=== PATIENT | female | born 1940 | race Caucasian/White ===

== ENCOUNTER 2018-05-19 08:47 | Inpatient (IN) ==
[2018-05-19] MEDS ORDERED: ENOXAPARIN 100 MG/ML SYRINGE SUBCUT STA (09:13)
[2018-05-19] MEDS: NITROGLYCERIN SL 0.4 MG TABLET SL PRN ×3 (09:13→13:25)
[2018-05-19 09:38] LABS: Basophils % 0.9 % (0.0-0.8); Eosinophils # 0.1 10*3/uL (0.0-0.87); Eosinophils % 1.7 % (0.00-10.9); Hematocrit 44.1 VOL% (35.7-47.0); Immature Granulocytes % 0.2 %; Immature Granulocytes Absolute 0.01 #; Lymphocytes # 1.2 10*3/uL (1.4-4.0); Lymphocytes % 25.3 % (21.3-54.2); Mean Corpuscular HGB Conc 31.7 GM/DL (32-36); Mean Corpuscular Hemoglobin 30 PG (27-34); Mean Corpuscular Volume 94.8 FL (87-102); Mean Platelet Volume 9.7 FL (9.6-12.0); Monocytes # 0.4 10*3/uL (0.11-0.8); Monocytes % 8.6 % (1.7-12.7); Neutrophils # 2.9 10*3/uL (1.4-7.4); Neutrophils % 63.3 % (38.7-73.9); Platelet Count 259 T/CUMM (130-400); Red Blood Count 4.65 MC/CUMM (3.8-5.5); Red Cell Distribution Width 13.3 % (9.3-17.3); White Blood Count 4.6 T/CUMM (4-12)
[2018-05-19] MEDS ORDERED: ONDANSETRON 4 MG/2 ML VIAL ONE (09:58)
[2018-05-19] MEDS ORDERED: MORPHINE 4 MG/1 ML VIAL ONE ×2 (09:59→19:33)
[2018-05-19 10:03] LABS: Albumin 3.8 G/DL (3.4-5.0); Bilirubin,Total 0.5 MG/DL (0.2-1.0); Calcium 9.2 MG/DL (8.5-10.1); Osmolality,Calculated 282.3 MOS/KG (273-304); Potassium 4.1 MMOL/L (3.5-5.1); Total Protein 6.9 G/DL (6.4-8.3)
[2018-05-19] MEDS ORDERED: ONDANSETRON 4 MG/2 ML VIAL IV STA (10:06)
[2018-05-19] MEDS ORDERED: MORPHINE 4 MG/1 ML VIAL IV STA (10:06)
[2018-05-19] MEDS ORDERED: DOCUSATE SODIUM 100 MG CAPSULE PO PRN (11:33)
[2018-05-19] MEDS ORDERED: ZALEPLON 5 MG CAPSULE PO PRN (11:33)
[2018-05-19] MEDS ORDERED: MAGNESIUM SULF RIDER 2 GM in PREMIX 1 EACH IV PRN (11:33)
[2018-05-19] MEDS ORDERED: guaiFENesin/DM ER 600-30 MG TABLET PO PRN (11:33)
[2018-05-19] MEDS ORDERED: ONDANSETRON 4 MG/2 ML VIAL IV PRN (11:33)
[2018-05-19] MEDS ORDERED: diphenhydrAMINE CAP 25 MG CAPSULE PO PRN (11:33)
[2018-05-19] MEDS ORDERED: POTASSIUM CHLORIDE 20 MEQ TABLET PO PRN (11:33)
[2018-05-19] MEDS ORDERED: MAGNESIUM SULF RIDER 4 GM in PREMIX 1 EACH IV PRN (11:33)
[2018-05-19] MEDS ORDERED: ACETAMINOPHEN 325 MG TABLET PO PRN (11:33)
[2018-05-19] MEDS ORDERED: BISACODYL 5 MG TABLET PO PRN (11:33)
[2018-05-19 13:48] LABS: Troponin I 4.09 NG/ML (0.00-0.045)
[2018-05-19] MEDS ORDERED: DIAZEPAM 5 MG TABLET PO ONE (14:01)
[2018-05-19] MEDS ORDERED: diphenhydrAMINE CAP 25 MG CAPSULE PO ONE (14:01)
[2018-05-19] MEDS ORDERED: LIDOCAINE 1% 20 ML VIAL ONE (14:54)
[2018-05-19] MEDS ORDERED: MIDAZOLAM 2 MG/2 ML VIAL ONE (15:03)
[2018-05-19] MEDS ORDERED: fentaNYL 100 MCG/2 ML VIAL ONE (15:04)
[2018-05-19 15:35] LABS: CKMB % 11.6 %
[2018-05-19 15:45] LABS: Troponin I 6.36 NG/ML (0.00-0.045)
[2018-05-19] MEDS ORDERED: TIROFIBAN 5,000 MCG/100 ML PREMIX IV ONE (18:06)
[2018-05-19] MEDS ORDERED: TIROFIBAN 5,000 MCG/100 ML PREMIX IV SCH (18:11)
[2018-05-19] MEDS ORDERED: HEPARIN 5,000 UNIT/1 ML VIAL ONE (18:33)
[2018-05-19] MEDS ORDERED: CLOPIDOGREL 300 MG TABLET ONE (18:34)
[2018-05-19] MEDS ORDERED: LORazepam 0.5 MG TABLET PO PRN (19:07)
[2018-05-19] MEDS: MORPHINE 4 MG/1 ML VIAL IV PRN (19:32)
[2018-05-19 20:21] LABS: CKMB % 11.5 %
[2018-05-19 20:24] LABS: Troponin I 13.8 NG/ML (0.00-0.045)
[2018-05-19] MEDS: SODIUM CHLORIDE 0.9% 1,000 ML IV SCH (21:07)
[2018-05-19] MEDS: PANTOPRAZOLE 40 MG TABLET PO SCH ×2 (21:07→21:11)
[2018-05-19] MEDS: CARBIDOPA/LEVODOPA 25-100 MG TABLET PO SCH (21:09)
[2018-05-19] MEDS: CALCIUM (CARBONATE) 500 MG TABLET PO SCH (21:10)
[2018-05-19] MEDS: PRAVASTATIN 40 MG TABLET PO SCH (21:10)
[2018-05-19] MEDS: POTASSIUM CHLORIDE 10 MEQ TABLET PO SCH (21:10)
[2018-05-19] MEDS: CLOPIDOGREL 75 MG TABLET PO SCH (21:10)
[2018-05-19] MEDS: CARVEDILOL 12.5 MG TABLET PO SCH (21:10)
[2018-05-19 22:47] LABS: Troponin I 13.8 NG/ML (0.00-0.045)
[2018-05-20] MEDS: SODIUM CHLORIDE 0.9% 1,000 ML IV SCH (01:30)
[2018-05-20] MEDS: MORPHINE 4 MG/1 ML VIAL IV PRN ×2 (04:32→12:07)
[2018-05-20 05:42] LABS: Basophils # 0.1 10*3/uL (0.0-0.2); Basophils % 0.7 % (0.0-0.8); Eosinophils # 0.1 10*3/uL (0.0-0.87); Eosinophils % 0.7 % (0.00-10.9); Hematocrit 34.9 VOL% (35.7-47.0); Hemoglobin 11.5 GM/DL (12.0-16.0); Immature Granulocytes % 0.4 %; Immature Granulocytes Absolute 0.03 #; Lymphocytes # 0.9 10*3/uL (1.4-4.0); Lymphocytes % 13.2 % (21.3-54.2); Mean Corpuscular Hemoglobin 32 PG (27-34); Mean Corpuscular Volume 95.6 FL (87-102); Mean Platelet Volume 9.8 FL (9.6-12.0); Monocytes # 0.7 10*3/uL (0.11-0.8); Monocytes % 9.6 % (1.7-12.7); Neutrophils # 5.3 10*3/uL (1.4-7.4); Neutrophils % 75.4 % (38.7-73.9); Platelet Count 212 T/CUMM (130-400); Red Blood Count 3.65 MC/CUMM (3.8-5.5); Red Cell Distribution Width 13.5 % (9.3-17.3)
[2018-05-20] MEDS: LEVOTHYROXINE 88 MCG TABLET PO SCH (06:04)
[2018-05-20 06:14] LABS: CKMB % 10.2 %; Calcium 8.5 MG/DL (8.5-10.1); Osmolality,Calculated 286.8 MOS/KG (273-304); Potassium 3.9 MMOL/L (3.5-5.1); Risk Ratio 4.74; VLDL CHOLESTEROL 32.2 MG/DL
[2018-05-20 06:15] LABS: Troponin I 6.46 NG/ML (0.00-0.045)
[2018-05-20] MEDS: CALCIUM (CARBONATE) 500 MG TABLET PO SCH ×2 (08:57→20:57)
[2018-05-20] MEDS: CARVEDILOL 12.5 MG TABLET PO SCH ×2 (08:57→20:59)
[2018-05-20] MEDS: MULTIVITAMIN (CENTRUM) TABLET PO SCH (08:57)
[2018-05-20] MEDS: CARBIDOPA/LEVODOPA 25-100 MG TABLET PO SCH ×2 (08:57→20:57)
[2018-05-20] MEDS: CHOLECALCIFEROL 1,000 UNIT TABLET PO SCH (08:57)
[2018-05-20] MEDS: CITALOPRAM 20 MG TABLET PO SCH (08:57)
[2018-05-20] MEDS: MULTIVITAMIN (OCUVITE) TABLET PO SCH (08:57)
[2018-05-20] MEDS: PANTOPRAZOLE 40 MG TABLET PO SCH ×3 (08:58→21:00)
[2018-05-20] MEDS ORDERED: ENOXAPARIN 40 MG/0.4 ML SYRINGE SUBCUT SCH (09:00)
[2018-05-20] MEDS: MELOXICAM 7.5 MG TABLET PO SCH (09:00)
[2018-05-20] MEDS ORDERED: FUROSEMIDE 20 MG/2 ML VIAL IV SCH (09:00)
[2018-05-20] MEDS: LOSARTAN 25 MG TABLET PO SCH ×2 (09:05→20:58)
[2018-05-20] MEDS: ASPIRIN CHEW 81 MG TABLET PO SCH (09:05)
[2018-05-20] MEDS: POTASSIUM CHLORIDE 10 MEQ TABLET PO SCH ×2 (09:06→20:57)
[2018-05-20] MEDS: SPIRONOLACTONE 25 MG TABLET PO SCH (15:03)
[2018-05-20] MEDS: ACETAMINOPHEN 325 MG TABLET PO SCH ×2 (15:04→20:56)
[2018-05-20] MEDS: GABAPENTIN 100 MG CAPSULE PO SCH ×2 (15:04→20:56)
[2018-05-20] MEDS: FUROSEMIDE 40 MG/4 ML VIAL IV SCH (16:24)
[2018-05-20] MEDS: CLOPIDOGREL 75 MG TABLET PO SCH (20:56)
[2018-05-20] MEDS: PRAVASTATIN 40 MG TABLET PO SCH (20:57)
[2018-05-21 05:40] LABS: Basophils % 0.7 % (0.0-0.8); Eosinophils # 0.1 10*3/uL (0.0-0.87); Eosinophils % 1.5 % (0.00-10.9); Hematocrit 34.9 VOL% (35.7-47.0); Hemoglobin 11.3 GM/DL (12.0-16.0); Immature Granulocytes % 0.3 %; Immature Granulocytes Absolute 0.02 #; Lymphocytes # 1.4 10*3/uL (1.4-4.0); Lymphocytes % 24.1 % (21.3-54.2); Mean Corpuscular HGB Conc 32.4 GM/DL (32-36); Mean Corpuscular Hemoglobin 31 PG (27-34); Mean Corpuscular Volume 95.9 FL (87-102); Mean Platelet Volume 10.1 FL (9.6-12.0); Monocytes # 0.8 10*3/uL (0.11-0.8); Monocytes % 13.6 % (1.7-12.7); Neutrophils # 3.6 10*3/uL (1.4-7.4); Neutrophils % 59.8 % (38.7-73.9); Platelet Count 192 T/CUMM (130-400); Red Blood Count 3.64 MC/CUMM (3.8-5.5); Red Cell Distribution Width 13.3 % (9.3-17.3); White Blood Count 5.9 T/CUMM (4-12)
[2018-05-21 05:55] LABS: Osmolality,Calculated 282.3 MOS/KG (273-304); Potassium 4.4 MMOL/L (3.5-5.1)
[2018-05-21] MEDS: LEVOTHYROXINE 88 MCG TABLET PO SCH (06:08)
[2018-05-21] MEDS: FUROSEMIDE 40 MG/4 ML VIAL IV SCH (08:43)
[2018-05-21] MEDS: CHOLECALCIFEROL 1,000 UNIT TABLET PO SCH (09:46)
[2018-05-21] MEDS: MULTIVITAMIN (OCUVITE) TABLET PO SCH (09:46)
[2018-05-21] MEDS: MELOXICAM 7.5 MG TABLET PO SCH (09:47)
[2018-05-21] MEDS: CARVEDILOL 12.5 MG TABLET PO SCH (09:47)
[2018-05-21] MEDS: LOSARTAN 25 MG TABLET PO SCH (09:47)
[2018-05-21] MEDS: ACETAMINOPHEN 325 MG TABLET PO SCH (09:47)
[2018-05-21] MEDS: CALCIUM (CARBONATE) 500 MG TABLET PO SCH (09:47)
[2018-05-21] MEDS: CARBIDOPA/LEVODOPA 25-100 MG TABLET PO SCH (09:47)
[2018-05-21] MEDS: PANTOPRAZOLE 40 MG TABLET PO SCH ×2 (09:47→09:49)
[2018-05-21] MEDS: CITALOPRAM 20 MG TABLET PO SCH (09:48)
[2018-05-21] MEDS: MULTIVITAMIN (CENTRUM) TABLET PO SCH (09:48)
[2018-05-21] MEDS: SPIRONOLACTONE 25 MG TABLET PO SCH (09:48)
[2018-05-21] MEDS: POTASSIUM CHLORIDE 10 MEQ TABLET PO SCH (09:48)
[2018-05-21] MEDS: ASPIRIN CHEW 81 MG TABLET PO SCH (09:48)
[2018-05-21] MEDS: GABAPENTIN 100 MG CAPSULE PO SCH (09:49)
[2018-05-21] MEDS ORDERED: ROSUVASTATIN 20 MG TABLET PO SCH (11:30)
[2018-05-21 12:03] VITALS: BP 122/57
[2018-05-21] MEDS ORDERED: FUROSEMIDE 40 MG TABLET PO SCH (16:00)
[2018-05-21] MEDS ORDERED: EZETIMIBE 10 MG TABLET PO SCH (17:57)
[2018-05-21] MEDS ORDERED: LOSARTAN 25 MG TABLET PO SCH (21:00)
== END 2018-05-21 14:00 | disposition home or self-care (01) | DRG 246 ==
LOC: N.ED 08:47 → N.EDINP 08:47 → N.2W 11:18 → N.TELES 19:19
PROVIDERS: ADMIT Internal Medicine Cardiovascular Disease; ATTEND Internal Medicine Cardiovascular Disease

== ENCOUNTER 2021-12-20 06:14 | Inpatient (IN) ==
[2021-12-20 06:37] LABS: Basophils % 0.4 % (0.0-0.8); Eosinophils % 0.4 % (0.00-10.9); Hematocrit 40.7 VOL% (35.7-47.0); Hemoglobin 13.2 GM/DL (12.0-16.0); Immature Granulocytes % 0.6 %; Immature Granulocytes Absolute 0.05 #; Mean Corpuscular HGB Conc 32.4 GM/DL (32-36); Mean Corpuscular Volume 99.3 FL (87-102); Mean Platelet Volume 9.3 FL (9.6-12.0); Monocytes # 1.1 10*3/uL (0.11-0.8); Monocytes % 11.8 % (1.7-12.7); Neutrophils % 64.8 % (38.7-73.9); Platelet Count 235 T/CUMM (130-400); Red Cell Distribution Width 13.9 % (9.3-17.3)
[2021-12-20 06:51] LABS: PT Patient Result 10.6 SECS (10.5-12.0); Partial Thromboplastin Time 33.4 SECS (23.8-32.1)
[2021-12-20] MEDS ORDERED: NITROGLYCERIN 2% OINT 1 INCH/GM PACK TOP STA (06:51)
[2021-12-20] MEDS ORDERED: ENOXAPARIN 100 MG/ML SYRINGE SUBCUT STA (06:51)
[2021-12-20] MEDS ORDERED: KETOROLAC 30 MG/1 ML VIAL IV STA (06:53)
[2021-12-20 07:05] LABS: Albumin 3.5 G/DL (3.4-5.0); Bilirubin,Total 0.5 MG/DL (0.20-1.00); Calcium 9.2 MG/DL (8.5-10.1); Osmolality,Calculated 280.4 MOS/KG (273-304); Potassium 3.8 MMOL/L (3.5-5.1); Total Protein 6.9 G/DL (6.4-8.2)
[2021-12-20] MEDS ORDERED: ENOXAPARIN 60 MG/0.6 ML SYRINGE ONE (07:13)
[2021-12-20] MEDS ORDERED: NITROGLYCERIN SL 0.4 MG TABLET SL ONE (09:15)
[2021-12-20] MEDS ORDERED: NITROGLYCERIN SL 0.4 MG TABLET SL STA (09:18)
[2021-12-20] MEDS ORDERED: ALUMINUM/MAGNES/SIMETH MAX STR 30 ML UDCUP PO PRN (09:27)
[2021-12-20] MEDS ORDERED: hydrALAZINE 20 MG/1 ML VIAL IV PRN (09:27)
[2021-12-20] MEDS ORDERED: ONDANSETRON 4 MG/2 ML VIAL IV PRN (09:27)
[2021-12-20] MEDS ORDERED: DOCUSATE SODIUM 100 MG CAPSULE PO PRN (09:27)
[2021-12-20] MEDS ORDERED: guaiFENesin/DM ER 600-30 MG TABLET PO PRN (09:27)
[2021-12-20] MEDS ORDERED: NICOTINE 21 MG/24 HR PATCH TRANSDERM PRN (09:27)
[2021-12-20] MEDS ORDERED: PROMETHAZINE 25 MG TABLET PO PRN (09:27)
[2021-12-20] MEDS ORDERED: ACETAMINOPHEN 325 MG TABLET PO PRN (09:27)
[2021-12-20] MEDS ORDERED: diphenhydrAMINE CAP 25 MG CAPSULE PO PRN (09:27)
[2021-12-20] MEDS ORDERED: ALUM/MAG/SIMETH/LIDO VISC 1:1 30 ML BOTTLE PO STA (09:30)
[2021-12-20] MEDS ORDERED: TEMAZEPAM 15 MG CAPSULE PO PRN (10:44)
[2021-12-20] MEDS ORDERED: CALCIUM (CARBONATE) 600 MG TABLET PO SCH (12:00)
[2021-12-20] MEDS: RANOLAZINE 500 MG TABLET PO SCH ×2 (12:38→20:40)
[2021-12-20] MEDS: ASPIRIN CHEW 81 MG TABLET PO SCH (12:40)
[2021-12-20] MEDS: LEVOTHYROXINE 88 MCG TABLET PO SCH (12:41)
[2021-12-20] MEDS: FUROSEMIDE 20 MG TABLET PO SCH (12:41)
[2021-12-20] MEDS: CALCIUM (CARBONATE) 500 MG TABLET PO SCH (12:41)
[2021-12-20] MEDS: METOPROLOL SUCCINATE XL 50 MG TABLET PO SCH (12:41)
[2021-12-20] MEDS: ISOSORBIDE MONONITRATE 30 MG TABLET PO SCH (12:42)
[2021-12-20] MEDS: DAPAGLIFLOZIN 10 MG TABLET PO SCH (12:43)
[2021-12-20] MEDS ORDERED: DIGOXIN 0.125 MG TABLET PO SCH (13:00)
[2021-12-20] MEDS ORDERED: MORPHINE 2 MG/1 ML SYRINGE IV PRN (14:47)
[2021-12-20] MEDS: NITROGLYCERIN 2% OINT 1 INCH/GM PACK TOP SCH ×2 (14:50→20:40)
[2021-12-20] MEDS: DIGOXIN 0.125 MG TABLET PO SCH (20:40)
[2021-12-20] MEDS: ENOXAPARIN 60 MG/0.6 ML SYRINGE SUBCUT SCH (20:40)
[2021-12-21] MEDS: NITROGLYCERIN 2% OINT 1 INCH/GM PACK TOP SCH ×4 (04:48→21:34)
[2021-12-21 05:02] LABS: Basophils % 0.6 % (0.0-0.8); Eosinophils # 0.1 10*3/uL (0.0-0.87); Eosinophils % 1.1 % (0.00-10.9); Hematocrit 34.4 VOL% (35.7-47.0); Immature Granulocytes % 0.4 %; Immature Granulocytes Absolute 0.02 #; Lymphocytes # 1.6 10*3/uL (1.4-4.0); Lymphocytes % 29.8 % (21.3-54.2); Mean Corpuscular HGB Conc 32.3 GM/DL (32-36); Mean Corpuscular Volume 100.3 FL (87-102); Mean Platelet Volume 9.6 FL (9.6-12.0); Monocytes # 0.7 10*3/uL (0.11-0.8); Monocytes % 12.7 % (1.7-12.7); Neutrophils % 55.4 % (38.7-73.9); Platelet Count 206 T/CUMM (130-400); Red Blood Count 3.43 MC/CUMM (3.8-5.5); Red Cell Distribution Width 13.9 % (9.3-17.3)
[2021-12-21 05:03] LABS: Hemoglobin 11.1 GM/DL (12.0-16.0); White Blood Count 5.4 T/CUMM (4-12)
[2021-12-21 05:14] LABS: Alanine Aminotransferase 17 U/L (13-56); Albumin 2.5 G/DL (3.4-5.0); Alkaline Phosphatase 67 U/L (45-117); Aspartate Amino Transferase 16 U/L (0-37); Bilirubin,Total < 0.39 MG/DL (0.20-1.00); Blood Urea Nitrogen 20 MG/DL (7-18); Calcium 8.8 MG/DL (8.5-10.1); Carbon Dioxide 25 MMOL/L (21-32); Chloride 114 MMOL/L (98-107); Glucose 132 MG/DL (74-106); Potassium 3.9 MMOL/L (3.5-5.1); Sodium 143 MMOL/L (136-145); Total Protein 5.9 G/DL (6.4-8.2)
[2021-12-21 05:18] LABS: Risk Ratio 5.58; VLDL Cholesterol 41.4 MG/DL
[2021-12-21] MEDS ORDERED: MULTIVITAMIN (OCUVITE) TABLET PO SCH (09:00)
[2021-12-21] MEDS ORDERED: ENOXAPARIN 40 MG/0.4 ML SYRINGE SUBCUT SCH (09:00)
[2021-12-21] MEDS: METOPROLOL SUCCINATE XL 50 MG TABLET PO SCH (09:22)
[2021-12-21] MEDS: MULTIVITAMIN (CENTRUM) TABLET PO SCH (09:22)
[2021-12-21] MEDS: FUROSEMIDE 20 MG TABLET PO SCH (09:22)
[2021-12-21] MEDS: LEVOTHYROXINE 88 MCG TABLET PO SCH (09:22)
[2021-12-21] MEDS: RANOLAZINE 500 MG TABLET PO SCH ×2 (09:22→21:34)
[2021-12-21] MEDS: ISOSORBIDE MONONITRATE 30 MG TABLET PO SCH (09:22)
[2021-12-21] MEDS: DAPAGLIFLOZIN 10 MG TABLET PO SCH (09:22)
[2021-12-21] MEDS: CALCIUM (CARBONATE) 500 MG TABLET PO SCH (09:22)
[2021-12-21] MEDS: CHOLECALCIFEROL 1,000 UNIT TABLET PO SCH (09:22)
[2021-12-21] MEDS: ENOXAPARIN 60 MG/0.6 ML SYRINGE SUBCUT SCH ×2 (09:23→21:33)
[2021-12-21] MEDS: ASPIRIN CHEW 81 MG TABLET PO SCH (12:08)
[2021-12-21] MEDS: DIGOXIN 0.125 MG TABLET PO SCH (21:34)
[2021-12-22] MEDS: NITROGLYCERIN 2% OINT 1 INCH/GM PACK TOP SCH ×4 (03:00→20:14)
[2021-12-22 05:30] LABS: Basophils % 0.5 % (0.0-0.8); Eosinophils # 0.1 10*3/uL (0.0-0.87); Eosinophils % 2.4 % (0.00-10.9); Hematocrit 34.6 VOL% (35.7-47.0); Hemoglobin 11.1 GM/DL (12.0-16.0); Immature Granulocytes % 0.5 %; Immature Granulocytes Absolute 0.02 #; Lymphocytes # 1.5 10*3/uL (1.4-4.0); Lymphocytes % 37.1 % (21.3-54.2); Mean Corpuscular HGB Conc 32.1 GM/DL (32-36); Mean Corpuscular Volume 99.1 FL (87-102); Mean Platelet Volume 10.7 FL (9.6-12.0); Monocytes # 0.6 10*3/uL (0.11-0.8); Monocytes % 14.1 % (1.7-12.7); Neutrophils % 45.4 % (38.7-73.9); Platelet Count 188 T/CUMM (130-400); Red Blood Count 3.49 MC/CUMM (3.8-5.5); Red Cell Distribution Width 13.4 % (9.3-17.3); White Blood Count 4.1 T/CUMM (4-12)
[2021-12-22 05:56] LABS: Albumin 2.6 G/DL (3.4-5.0); Bilirubin,Total 0.4 MG/DL (0.20-1.00); Calcium 9.4 MG/DL (8.5-10.1); Osmolality,Calculated 281.3 MOS/KG (273-304); Total Protein 6.1 G/DL (6.4-8.2)
[2021-12-22] MEDS ORDERED: KETOROLAC 30 MG/1 ML VIAL IV ONE ×2 (08:15→14:42)
[2021-12-22] MEDS: LEVOTHYROXINE 88 MCG TABLET PO SCH (09:45)
[2021-12-22] MEDS: RANOLAZINE 500 MG TABLET PO SCH ×2 (09:45→20:15)
[2021-12-22] MEDS: MULTIVITAMIN (CENTRUM) TABLET PO SCH (09:45)
[2021-12-22] MEDS: FUROSEMIDE 20 MG TABLET PO SCH (09:45)
[2021-12-22] MEDS: CALCIUM (CARBONATE) 500 MG TABLET PO SCH (09:46)
[2021-12-22] MEDS: CHOLECALCIFEROL 1,000 UNIT TABLET PO SCH (09:46)
[2021-12-22] MEDS: ASPIRIN CHEW 81 MG TABLET PO SCH (09:46)
[2021-12-22] MEDS: ISOSORBIDE MONONITRATE 30 MG TABLET PO SCH (09:46)
[2021-12-22] MEDS: DAPAGLIFLOZIN 10 MG TABLET PO SCH (09:46)
[2021-12-22] MEDS: METOPROLOL SUCCINATE XL 50 MG TABLET PO SCH (09:49)
[2021-12-22] MEDS: ENOXAPARIN 60 MG/0.6 ML SYRINGE SUBCUT SCH ×2 (09:49→20:14)
[2021-12-22] MEDS ORDERED: MAGNESIUM SULF RIDER 2 GM/50 ML PREMIX IV PRN (15:57)
[2021-12-22] MEDS ORDERED: POTASSIUM CHLORIDE RIDER 10 MEQ/100 ML PREMIX IV PRN (15:57)
[2021-12-22] MEDS: SODIUM CHLORIDE 0.9% 1,000 ML IV SCH (18:12)
[2021-12-22] MEDS: DIGOXIN 0.125 MG TABLET PO SCH (20:15)
[2021-12-22] MEDS: ASCORBIC ACID 500 MG TABLET PO SCH (20:15)
[2021-12-23] MEDS: NITROGLYCERIN 2% OINT 1 INCH/GM PACK TOP SCH ×2 (03:18→09:11)
[2021-12-23 05:07] LABS: Basophils % 0.6 % (0.0-0.8); Eosinophils # 0.1 10*3/uL (0.0-0.87); Eosinophils % 1.7 % (0.00-10.9); Hematocrit 32.4 VOL% (35.7-47.0); Hemoglobin 10.4 GM/DL (12.0-16.0); Immature Granulocytes % 0.2 %; Immature Granulocytes Absolute 0.01 #; Lymphocytes # 1.6 10*3/uL (1.4-4.0); Lymphocytes % 33.3 % (21.3-54.2); Mean Corpuscular HGB Conc 32.1 GM/DL (32-36); Mean Corpuscular Volume 99.1 FL (87-102); Mean Platelet Volume 9.8 FL (9.6-12.0); Monocytes # 0.6 10*3/uL (0.11-0.8); Monocytes % 13.1 % (1.7-12.7); Neutrophils % 51.1 % (38.7-73.9); Platelet Count 228 T/CUMM (130-400); Red Blood Count 3.27 MC/CUMM (3.8-5.5); Red Cell Distribution Width 13.2 % (9.3-17.3); White Blood Count 4.7 T/CUMM (4-12)
[2021-12-23 05:29] LABS: Alanine Aminotransferase 19 U/L (13-56); Albumin 2.5 G/DL (3.4-5.0); Alkaline Phosphatase 58 U/L (45-117); Aspartate Amino Transferase 18 U/L (0-37); Bilirubin,Total < 0.39 MG/DL (0.20-1.00); Blood Urea Nitrogen 20 MG/DL (7-18); Calcium 9.7 MG/DL (8.5-10.1); Carbon Dioxide 26 MMOL/L (21-32); Chloride 109 MMOL/L (98-107); Glucose 114 MG/DL (74-106); Osmolality,Calculated 284.3 MOS/KG (273-304); Potassium 4.2 MMOL/L (3.5-5.1); Sodium 141 MMOL/L (136-145); Total Protein 5.8 G/DL (6.4-8.2)
[2021-12-23 05:39] LABS: Osmolality,Calculated 285.1 MOS/KG (273-304); Potassium 4.7 MMOL/L (3.5-5.1)
[2021-12-23] MEDS ORDERED: POTASSIUM CHLORIDE RIDER 10 MEQ/100 ML PREMIX IV PRN (07:54)
[2021-12-23] MEDS ORDERED: MAGNESIUM SULF RIDER 2 GM/50 ML PREMIX IV PRN (07:54)
[2021-12-23] MEDS: ENOXAPARIN 60 MG/0.6 ML SYRINGE SUBCUT SCH ×2 (08:58→20:07)
[2021-12-23] MEDS: ASPIRIN CHEW 81 MG TABLET PO SCH (09:14)
[2021-12-23] MEDS: ASCORBIC ACID 500 MG TABLET PO SCH ×2 (09:15→20:07)
[2021-12-23] MEDS: CALCIUM (CARBONATE) 500 MG TABLET PO SCH (09:15)
[2021-12-23] MEDS: DAPAGLIFLOZIN 10 MG TABLET PO SCH (09:15)
[2021-12-23] MEDS: CHOLECALCIFEROL 1,000 UNIT TABLET PO SCH (09:15)
[2021-12-23] MEDS: FUROSEMIDE 20 MG TABLET PO SCH (09:16)
[2021-12-23] MEDS: ISOSORBIDE MONONITRATE 30 MG TABLET PO SCH (09:16)
[2021-12-23] MEDS: MULTIVITAMIN (CENTRUM) TABLET PO SCH (09:16)
[2021-12-23] MEDS: EZETIMIBE 10 MG TABLET PO SCH (09:16)
[2021-12-23] MEDS: RANOLAZINE 500 MG TABLET PO SCH ×2 (09:17→20:12)
[2021-12-23] MEDS: METOPROLOL SUCCINATE XL 50 MG TABLET PO SCH (09:19)
[2021-12-23] MEDS: SODIUM CHLORIDE 0.9% 1,000 ML IV SCH ×2 (09:20→20:47)
[2021-12-23] MEDS: LEVOTHYROXINE 88 MCG TABLET PO SCH (09:36)
[2021-12-23] MEDS ORDERED: HEPARIN/NACL 0.9% 2 UNITS/ML 2,000 UNIT/1,000 ML BAG IV ONE (13:45)
[2021-12-23] MEDS ORDERED: fentaNYL 100 MCG/2 ML VIAL ONE (13:47)
[2021-12-23] MEDS ORDERED: MIDAZOLAM 2 MG/2 ML VIAL ONE (13:47)
[2021-12-23] MEDS ORDERED: diphenhydrAMINE CAP 50 MG CAPSULE PO ONE ×2 (14:00)
[2021-12-23] MEDS ORDERED: DIAZEPAM 5 MG TABLET PO ONE (14:00)
[2021-12-23] MEDS ORDERED: HEPARIN 5,000 UNIT/1 ML VIAL ONE (14:12)
[2021-12-23] MEDS ORDERED: CLOPIDOGREL 300 MG TABLET ONE (14:37)
[2021-12-23 16:34] LABS: Bacteria,Urine Occasional /HPF (Few); Bilirubin,Urine Negative (Negative); Blood, Urine Moderate mg/dL (Negative); Glucose,Urine (UA) 500 mg/dL (Negative); Ketones,Urine Negative (Negative); Mucus,Urine Occasional /LPF (Occasional); Nitrite,Urine Positive (Negative); Protein,Urine Negative (Negative); RBC,Urine 21 /HPF (0-4); Urine Appearance Clear (Clear); Urine Color Yellow (Yellow); Urine Urobilinogen 0.2 eU/dL (<2.0)
[2021-12-23] MEDS ORDERED: LEVOFLOXACIN INJ 250 MG/50 ML PREMIX IV SCH (20:00)
[2021-12-23] MEDS: DIGOXIN 0.125 MG TABLET PO SCH (20:07)
[2021-12-23] MEDS: PHENAZOPYRIDINE 95 MG TABLET PO SCH (20:07)
[2021-12-24 06:02] LABS: Basophils % 0.3 % (0.0-0.8); Eosinophils % 0.5 % (0.00-10.9); Hemoglobin 10.2 GM/DL (12.0-16.0); Immature Granulocytes % 0.3 %; Immature Granulocytes Absolute 0.02 #; Lymphocytes # 1.8 10*3/uL (1.4-4.0); Mean Corpuscular HGB Conc 31.9 GM/DL (32-36); Mean Corpuscular Volume 98.8 FL (87-102); Mean Platelet Volume 9.7 FL (9.6-12.0); Monocytes # 0.7 10*3/uL (0.11-0.8); Neutrophils % 56.9 % (38.7-73.9); Platelet Count 237 T/CUMM (130-400); Red Blood Count 3.24 MC/CUMM (3.8-5.5); Red Cell Distribution Width 13.2 % (9.3-17.3); White Blood Count 5.8 T/CUMM (4-12)
[2021-12-24 06:14] LABS: Calcium 8.8 MG/DL (8.5-10.1); Osmolality,Calculated 279.3 MOS/KG (273-304)
[2021-12-24 06:18] LABS: Alanine Aminotransferase 24 U/L (13-56); Albumin 2.5 G/DL (3.4-5.0); Alkaline Phosphatase 57 U/L (45-117); Aspartate Amino Transferase 40 U/L (0-37); Bilirubin,Total < 0.39 MG/DL (0.20-1.00); Blood Urea Nitrogen 12 MG/DL (7-18); Carbon Dioxide 27 MMOL/L (21-32); Chloride 109 MMOL/L (98-107); Glucose 100 MG/DL (74-106); Osmolality,Calculated 280.3 MOS/KG (273-304); Potassium 3.9 MMOL/L (3.5-5.1); Sodium 141 MMOL/L (136-145); Total Protein 5.7 G/DL (6.4-8.2)
[2021-12-24] MEDS: SODIUM CHLORIDE 0.9% 1,000 ML IV SCH (06:40)
[2021-12-24] MEDS: RANOLAZINE 500 MG TABLET PO SCH (08:47)
[2021-12-24] MEDS: MULTIVITAMIN (CENTRUM) TABLET PO SCH (08:47)
[2021-12-24] MEDS: LEVOTHYROXINE 88 MCG TABLET PO SCH (08:48)
[2021-12-24] MEDS: EZETIMIBE 10 MG TABLET PO SCH (08:48)
[2021-12-24] MEDS: CHOLECALCIFEROL 1,000 UNIT TABLET PO SCH (08:48)
[2021-12-24] MEDS: METOPROLOL SUCCINATE XL 50 MG TABLET PO SCH (08:48)
[2021-12-24] MEDS: FUROSEMIDE 20 MG TABLET PO SCH (08:48)
[2021-12-24] MEDS: DAPAGLIFLOZIN 10 MG TABLET PO SCH (08:48)
[2021-12-24] MEDS: PHENAZOPYRIDINE 95 MG TABLET PO SCH (08:48)
[2021-12-24] MEDS: CALCIUM (CARBONATE) 500 MG TABLET PO SCH (08:48)
[2021-12-24] MEDS: ASCORBIC ACID 500 MG TABLET PO SCH (08:48)
[2021-12-24] MEDS: ISOSORBIDE MONONITRATE 30 MG TABLET PO SCH (08:48)
[2021-12-24] MEDS: ENOXAPARIN 60 MG/0.6 ML SYRINGE SUBCUT SCH (08:49)
[2021-12-24] MEDS ORDERED: CLOPIDOGREL 75 MG TABLET PO SCH (09:00)
[2021-12-24] MEDS: ASPIRIN CHEW 81 MG TABLET PO SCH (09:09)
[2021-12-24] MEDS ORDERED: ROSUVASTATIN 20 MG TABLET PO SCH (09:30)
[2021-12-24 09:44] VITALS: BP 144/48
== END 2021-12-24 11:40 | disposition home or self-care (01) | DRG 247 ==
LOC: N.ED 06:14 → N.EDINP 06:14 → SUATTDRO 09:27 → N.EDINP 14:52 → N.TELEN 15:17
PROVIDERS: ADMIT Internal Medicine; ATTEND Internal Medicine